=== PATIENT | female | born 1980 | race Caucasian/White ===

== ENCOUNTER 2023-11-22 08:35 | Emergency (ER) | payer OTHER, SELFPAY ==
--- NOTE | 2023-11-22 09:08 | ED.URI ---
HPI - URI/Sore Throat General Chief Complaint: Upper Respiratory Infection Stated Complaint: cough,fever Time Seen by Provider: 11/22/23 09:10 Source: patient Mode of arrival: ambulatory Limitations: no limitations History of Present Illness HPI Narrative: Chula is a 43-year-old female patient presenting to the clinic today with complaints of cough, body aches, chills, and fever times 2-3 days. She reports no chest pain, shortness of breath, sore throat, nausea, vomiting, or diarrhea. No known exposure to anyone with COVID, flu, or strep. MD elicited complaint: fever, sore throat and nasal congestion Related Data Home Medications Medication Instructions Recorded Confirmed atorvastatin 20 mg tablet mg 11/22/23 hydrocodone 5 mg-acetaminophen 325 tablet 11/22/23 mg tablet losartan 100 tablet 11/22/23 mg-hydrochlorothiazide 25 mg tablet metformin 500 mg tablet mg 11/22/23 naloxone 4 mg/actuation nasal spray intranasal 11/22/23 Allergies Allergy/AdvReac Type Severity Reaction Status Date / Time erythromycin base Allergy Unknown Verified 03/30/13 11:02 Review of Systems Review of Systems: Pertinent positives per HPI. Patient denies any fever, chills, rash, headache, visual changes, dizziness, cough, shortness of breath, chest pain, palpitations, nausea, vomiting, diarrhea, constipation, abdominal pain, or any urinary issues. [facility] Family History Family History Mother Hypertension Family history of malignant neoplasm of breast in first degree relative Father Family history of diabetes mellitus in first degree relative Social History Social History Smoking status: Never smoker Alcohol intake: never Comments At the time of my signature, I reviewed and agree with the nursing past medical, surgical, social, and family history. There is no relevant family history pertinent to the patient complaint. Exam Narrative: General: Well-developed, well nourished, in no apparent distress Head: Normocephalic, atraumatic Eyes: Pupils equally round and reactive to light bilaterally, EOM intact, sclera and conjunctive clear, no discharge, lids normal Ears: TMs intact and clear, ear canals clear, no drainage, grossly hearing normal. Nose: Nares patent, clear nasal discharge, no inflammation, no sinus tenderness. Mouth: Oral pharynx without lesions or masses, good dentition, MMM. Neck: Supple, trachea midline, no enlargement of anterior or posterior cervical nodes, no thyroid masses or goiter palpable. Cardio: Regular rate and rhythm, s1 and s2 normal, no murmur appreciated. Resp: Clear to auscultation bilaterally, no rhonchi, rales, wheezing or rubs Course Course Emergency Course: Portions of this record may have been created with voice recognition software. Level of Care: Express Care Visit Vital Signs Vital signs: Vital signs reviewed MDM - URI/Sore Throat MDM Narrative Medical decision making narrative: At the time of visit patient is resting comfortably on the exam table. Patient appears to be nontoxic. COVID and influenza testing was performed. COVID testing was negative. Influenza testing was positive for influenza A. Prescription for Tamiflu was sent to the pharmacy. Supportive measures were discussed with the patient and they voiced understanding discharge instructions and agrees to treatment plan. Return precautions reviewed Differential Diagnosis Differential diagnosis: Likely upper respiratory infection, otitis media, sinusitis, viral infection, bronchitis, influenza, pharyngitis and other (COVID) Discharge Plan Discharge Clinical Impression: Influenza A Patient Disposition: Home, Self-Care Condition: Stable Instructions: Antibiotic Form, Influenza (ED) Additional Instructions: COVID testing was negative in clinic today. Influenza testing was p
[2023-11-22 09:11] VITALS: BP 140/88; PULSE 99; RESP 18; TEMP 36.2; O2SAT 98
[2023-11-22 09:12] VITALS: BP 140/88; PULSE 99; RESP 18; TEMP 36.2; O2SAT 98
== END 2023-11-22 09:48 | disposition home or self-care (01) ==
PROVIDERS: Emergency Provider Nurse Practitioner Family
DX: J10.1 Influenza due to other identified influenza virus with other respiratory manifestations (principal); Z20.822 Contact with and (suspected) exposure to COVID-19; E78.00 Pure hypercholesterolemia, unspecified; I10 Essential (primary) hypertension; E11.9 Type 2 diabetes mellitus without complications
CPT/HCPCS: 87426; 87804; 99213; C9803; G0463

== ENCOUNTER 2024-03-04 16:00 | Emergency (ER) | payer OTHER, SELFPAY ==
[2024-03-04 16:15] VITALS: BP 114/58; PULSE 87; RESP 18; TEMP 36.4; O2SAT 99
[2024-03-04 16:18] VITALS: BP 114/58; PULSE 87; RESP 18; TEMP 36.4; O2SAT 99
--- NOTE | 2024-03-04 16:27 | ED.GENADULT ---
HPI - General Adult General Chief complaint: Dental/Oral Stated complaint: left jaw pain and swelling Source: patient, RN notes reviewed and old records reviewed Mode of arrival: ambulatory Limitations: no limitations History of Present Illness HPI narrative: 43-year-old female presents to [facility] with complaints of left jaw pain and swelling this started yesterday while eating lunch. Patient states lasted approximately 1 hour and then pain and swelling went away. Patient states headache in today after eating lunch. Patient denies dental pain, patient denies ear pain, patient denies injury. Related Data Home Medications Medication Instructions Recorded Confirmed atorvastatin 20 mg tablet mg 11/22/23 losartan 100 tablet 11/22/23 mg-hydrochlorothiazide 25 mg tablet metformin 500 mg tablet mg 11/22/23 Allergies Allergy/AdvReac Type Severity Reaction Status Date / Time erythromycin base Allergy Unknown Unknown Verified 03/04/24 16:16 Review of Systems Constitutional: Constitutional: Reports no additional constitutional complaints, Denies body ache(s), Denies chills, Denies fatigue, Denies fever(s) and Denies headache(s) Eyes: Eyes: Reports no additional eye complaints and Denies blurry vision ENT: Reports system reviewed and no additional complaints, except as documented, Denies vertigo, Denies dizziness, Denies ear discharge, Denies otalgia, Denies facial pain, Denies headache(s), Denies nasal congestion, Denies nasal discharge, Denies sinus pain, Denies sinus pressure and Denies sore throat Comments: Jaw pain and swelling Cardiovascular: Cardiovascular: Reports no additional cardiovascular complaints, Denies chest pain, Denies chest pain at rest, Denies rapid heart rate and Denies dyspnea Respiratory: Respiratory: Reports no additional respiratory complaints, Denies chest congestion, Denies cough, Denies pain on inspiration, Denies pain with cough and Denies dyspnea Gastrointestinal: Gastrointestinal: Denies abdominal pain, Denies diarrhea, Denies nausea and Denies vomiting Integumentary/Breasts: Skin/Breast: Denies rash Neurologic: Reports system reviewed and no additional complaints, except as documented, Denies vertigo, Denies dizziness and Denies headache(s) Endocrine: Endocrine: Denies fatigue [facility] Family History Family History Mother Hypertension Family history of malignant neoplasm of breast in first degree relative Father Family history of diabetes mellitus in first degree relative Social History Social History Smoking status: Never smoker Alcohol intake: never Comments At the time of my signature, I reviewed and agree with the nursing past medical, surgical, social, and family history. There is no relevant family history pertinent to the patient complaint. Exam Const: General: cooperative, healthy appearing, no acute distress and well nourished Nutritional Appearance: well nourished Orientation/consciousness: patient oriented x3 Limitations: no limitations HENMT: Head: normal to inspection and normocephalic Ears: external ears normal, TM's normal bilaterally, EAC's normal and mastoids normal Face/Nose/Sinus: Normal nasal mucous membranes and turbinates present, normal facial exam and sinuses nontender Face and sinus: normal facial exam, face symmetric, no abrasions, no crepitus and no maxillary instability Mouth: Yes Normal oral and palatal mucosa present, Yes tongue normal, Yes Normal salivary glands and ducts present, Yes oropharynx normal, Yes moist mucous membranes, Yes moist mucous membranes abnormal and Yes abnormal TMJ ( TMJ tenderness) Teeth and gingiva: dentition normal, gingiva normal, no caries, no dentures, not edentulous, normal gingiva and dentition not poor Throat: tonsils normal, uvula midline and no uvular edema Eyes: General: appearance nor
== END 2024-03-04 16:42 | disposition home or self-care (01) ==
PROVIDERS: Emergency Provider Registered Nurse
DX: M26.602 Left temporomandibular joint disorder, unspecified (principal)
CPT/HCPCS: 99213; G0463

== ENCOUNTER 2025-03-06 18:21 | Emergency (ER) | payer OTHER, SELFPAY ==
--- OUTSIDE RECORDS SUMMARY | 2025-03-06 18:25 | XMS_ITS | Clinical Summary ---
Author Organization [facility] Address [address] [place] [id number] Care Team Providers Care Stitcher Hand Name Role Phone Adelita Ely Primary Care Provider Allergies Active Allergy Reactions Criticality Noted Date Comments Erythromycin Rash Low 01/17/2016 Medications HYDROcodone-jaqueline taminophen (NORCO) 5-325 MG tabletIndicatio ns:Acute Pain < 7 Day Supply Take 1-2 tablets by mouth every 4 (four) hours as needed for Pain. Indications: Acute Pain < 7 Day Supply 30 tablet 10/03/2023 Active atorvastatin (LIPITOR) 20 MG tablet Take 1 tablet (20 mg total) by mouth nightly at bedtime. Active metFORMIN (GLUCOPHAGE) 500 MG tablet Take 2 tablets (1,000 mg total) by mouth 2 (two) times daily with meals. Active losartan-hydroC HLOROthiazide (HYZAAR) 100-25 MG tablet Take 1 tablet by mouth daily. Active multi vitamin/mineral s (THERA-M ENHANCED) tablet Take 1 tablet by mouth daily. Active probiotic (FLORAJEN3) Cap capsule Take 1 capsule by mouth daily with breakfast. Active polycarbophil (FIBER) 625 MG tablet Take 1 tablet (625 mg total) by mouth daily. Active Active Problems Problem Noted Date Diagnosed Date Closed right radial fracture 10/03/2023 Overview (10/03/2023): Added automatically from request for surgery [id number] Family History Medical History Relation Comments Diabetes Father Breast Cancer Mother age unknown Cancer Mother Diabetes Mother Heart Disease Mother Hypertension Mother Relation Status Comments Father Mother Social History Tobacco Use Types Packs/Day Years Used Date Smoking Tobacco: Never Smokeless Tobacco: Never Tobacco Cessation:Counseling Given: Not Answered Alcohol Use Standard Drinks/Week Comments Yes 0 (1 standard drink = 0.6 oz pur e alcohol) Socially Humiliation, Afraid, Rape, and Kick questionnair e Answer Date Recorded Within the last year, have y ou been afraid of your partner or ex-partner? No 10/03/2023 Within the last year, have y ou been humiliated or emotionally abused in other ways by your partner or ex-partner? No Within the last year, have y ou been kicked, hit, slapped, or otherwise physically hurt by your partner or ex-partner? No 10/03/2023 Within the last year, have y ou been raped or forced to have any kind of sexual activity by your partner or ex-partner? No 10/03/2023 Overall Financial Resource Strain (CARDIA) Answe r Date Recorded How hard is it for you to pa y for the very basics like food, housing, medical care, and heating? Not hard at all 10/03/2023 Hunger Vital Sign Answer Date Recorded Within the past 12 months, y ou worried that your food would run out before you got the money to buy more. Never true 10/03/20 23 Within the past 12 months, t he food you bought just didn't last and you didn't have money to get more. Never true 10/03/2023 PRAPARE - Transportation Answer Date Re corded In the past 12 months, has l ack of transportation kept you from medical appointments or from getting medications? No 01/2023 In the past 12 months, has l ack of transportation kept you from meetings, work, or from getting things needed for daily living? No 10/03/2023 Housing Stability Vital Sign Answer Damon e Recorded In the last 12 months, was t here a time when you were not able to pay the mortgage or rent on time? No 10/03/2023 In the last 12 months, how many places have you lived? 1 10/03/2023 In the last 12 months, was t here a time when you did not have a steady place to sleep or slept in a fci (including now)? No 10/03/2023 Comments No Sex and Gender Information Value Date Recorded Sex Assigned at Not on file Legal Sex Female 6:15 PM CDT Gender Identity Not on file Sexual Orientation Not on file Last Filed Vital Signs Vital Sign Reading Time Taken Comments Blood Pressure 145/84 10/04/2023 11:00 AM CDT Pulse 88 10/04/2023 11:00 AM CDT Temperature 37.1 C (98.7 F) 10/04/2023 11:00 AM CDT Respiratory Rate 18 10/04/2023 11:00 AM CDT Oxygen Saturation 95% 10/04/2023 11:00 AM CDT Inhaled Oxygen Concentration - - Weight 113.4 kg (250 lb) 10/03/2023 2:51 PM CDT Height 167.6 cm (5' 6 ) 10/03/2023 2:51 PM CDT Body Mass Index 40.35 10/03/2023 2:51 PM CDT Plan of Treatment Health Maintenance Due Date Last Done Comments Cervical Cancer Screening Pap Smear (Age 30 to 64) Every 3 Years 1978 Colorectal Cancer Screening Colonoscopy (10 Years) 1978 Annual Physical 1981 Hepatitis C 1996 Hepatitis B Vaccines (1 of 3 - 19+ 3-dose series) 1997 Cervical Cancer Screening Pap with HPV Testing (Age 30 to 64) Every 5 Years 2008 Cervical Cancer Screening with HPV 2008 COVID-19 Vaccine ( season) 2024 01/19/2021, 12/22/2020 DTaP, Tdap and Td Vaccines (2 - Td or Tdap) 11/10/2024 11/10/2014 Mammogram Screening 04/22/2026 04/22/2024, 03/05/2023, 02/25/2022, Additional history exists Meningococcal B Vaccine Aged Out No l onger eligible based on patient's age to complete this topic Meningococcal Vaccine Aged Out No angella sandeep eligible based on patient's age to complete this topic Pneumococcal Vaccine: Pediatrics (0 to 5 Years) and At-Risk Patients (6 to 64 Years) Aged Out No longer eligible based on patient's age to complete this topic RSV Immunizations Under 20 Months Aged Out No longer eligible based on patient's age to complete this topic Medical Devices Implanted Type Area Income Tax Administrator Device Identifier Shelf Expiration Date Model / Serial / Lot 5 Hole Narrow Plate Implanted:Qty: 1 on 10/03/2023 by Mario Cid DO at [facility] Right: Arm [employer] [id number] / / Non Locking Screw Implanted:Qty: 2 on 10/03/2023 by Mario Cid DO at [facility] Right: Arm [employer] [id number] / / Locking Screw Implanted:Qty: 1 on 10/03/2023 by Mario Cid DO at [facility] Right: Arm [employer] [id number] / / K Wire Implanted:Qty: 1 on 10/03/2023 by Mario Cid DO at [facility] Right: Arm [employer] [id number] / / Explanted Type Area Income Tax Administrator Device Identifier Shelf Expiration Date Model / Serial / Lot Locking Screw Explanted:Qty: 1 on 10/03/2023 by Mario Cid DO at [facility] Right: Arm [employer] [id number] / / Procedures Procedure Name Priority Date/Time Associated Diagnosis Comments MG SCREENING W AXEL JESUS DIGI Routine 04/22/2024 9:12 AM CDT Visit for screening mammogram from Last 3 Months or Most Recently Relevant to Health Maintenance Results * MG SCREENING W AXEL JESUS DIGI (04/22/2024 9:12 AM CDT) Anatomical Region Laterality Modality Breast Bilateral Mammography 04/22/2024 9:56 AM CDT Impressions 04/22/2024 9:56 AM CDT IMPRESSION: No suspicious change since the previous exams. Recommendation: 1: Routine Screening Bilateral in 1 Year Assessment: ACR BI-RADS 2 - BENIGN FINDING(S) Ordered By: ADELITA ELY Interpreted By: Rubens Cook MD, 04/22/2024 9:56 AM Narrative 04/22/2024 9:56 AM CDT Examination: Digital screening mammogram with CAD. Clinical history: Asymptomatic patient presents for routine screening. Comparison: 03/05/2023, 02/25/2022, 01/10/2021. Technique: Bilateral digital mammograms. The exam was interpreted with the use of a computer-aided detection (CAD) system. Additional 3-D tomosynthesis images were acquired. Tissue density: The breast tissue contains scattered fibroglandular densities. Findings: The breast tissue contains scattered fibroglandular densities. Benign-appearing calcification noted. No suspicious mass, microcalcification or area of architectural distortion can be identified. From a mammographic standpoint, routine followup in one year would seem adequate. Adelita KIM MAMMO Final R esult from Last 3 Months or Most Recently Relevant to Health [place] [address] [address] [facility] [employer] Member Subscriber Plan / Payer (Ef fective 2023-Present) Name:Eric Chual Audelia Relation to Subscriber:Self Name:Chula Reyes Payer ID:Not on file [facility] Type:Not on file Address: [address] [place] [address] [employer] [facility] Care Teams Stitcher Hand Relationship Specialty [place] [address] [place] [address] PCP - General PHYSICIAN CONTENT CHECKER 02/20/21
--- OUTSIDE RECORDS SUMMARY | 2025-03-06 18:25 | XMS_ITS | Clinical Summary ---
Author Organization [facility] [employer] Address [address] [place] [address] Care Team Providers Care Commercial Loan Processor Name Role Phone Adelita Fraga PA-C Primary Care Provider [phone] Source Comments [facility] Affiliates and Associated Physician Practices is amultiple site organization consisting of ambulatory clinics and hospital sitesin [place], [place], [place] and [place]. This disclosure is being madepursuant to the Care Everywhere program and may not contain all information available regarding this patient. Last updated 18.[facility] [employer] Allergies Active Allergy Reactions Criticality Noted Date Comments Erythromycin 01/17/2016 Medications * Be aware that medications may not be up to date on this document. Alwaysverify current medications with the patient. Medication Sig Dispensed Refills Start Date End Date Status Blood Glucose Monitoring Suppl (BLOOD GLUCOSE MONITOR SYSTEM) w/Device KITIndications:Graciela vated blood sugar Use 1 Each 3 times daily 1 Each 07/11/2021 Active Lancets (ONETOUCH DELICA PLUS 33G EXTRA FINE LANCET)Indications :New onset type 2 diabetes mellitus (HCC) USE 1 LANCET TO CHECK GLUCOSE THREE TIMES DAILY 100 Each 11 05/07/2023 Active OneTouch Verio test stripIndications:N ew onset type 2 diabetes mellitus (HCC) USE 1 STRIP TO CHECK GLUCOSE THREE TIMES DAILY 100 strip 11 05/07/2023 Active Semaglutide (2 MG/DOSE) 8 MG/3ML Subcutaneous Solution Pen-injector (Ozempic (2 MG/DOSE))Indicatio ns:Type 2 diabetes mellitus with hyperglycemia, without long-term current use of insulin (HCC) Inject 2 (two) mg subcutaneously every 7 days 3 mL 3 12/31/2024 Active losartan-hydroCHLO ROthiazide (Hyzaar) 100-25 MG tablet Take 1 (one) tablet by mouth once daily 90 tablet 1 12/31/2024 Active atorvastatin (Lipitor) 20 MG tablet Take 1 (one) tablet by mouth once daily 90 tablet 1 12/31/2024 Active Active Problems Problem Noted Date Diagnosed Date Hypertensive disorder 05/20/2024 Type 2 diabetes mellitus 05/20/2024 Family history of breast cancer in mother 2020 Encounters Date Type Department Care Team Description 01/06/[address] [phone] Adelita Fraga PA-C Med Question 12/31/2024 8:20 AM [employer] Office Visit [address] [phone] Adelita Fraga PA-C Type 2 diabetes mellitus with hyperglycemia, without long-term current use of insulin (Primary Dx); Essential hypertension; High triglycerides 12/31/2024 Travel 12/23/2024 Travel 12/23/[address] [phone] Adelita Fraga PA-C Refill Request 12/20/2024 Travel from Last 3 Months Immunizations Name Administration Dates Next Due INFLUENZA VACCINE, TRIV. (AF LURIA, FLUZONE TRIVALENT; 6MO+) (IIV3) 09/04/2021 Covid Moderna primary monovalent 12+ yr 0.5mL ,12/22/2020 INFLUENZA VACCINE 09/09/2020,08/29/2016 INFLUENZA VACCINE, QUADR. (A FLURIA, FLUZONE QUADRIVALENT; 6MO+) (IIV4) 09/03/2022 INFLUENZA VACCINE, QUADR. (F LUZONE; FLULAVAL; FLUARIX; AFLURIA QUADRIVALENT; 6MO+), 0.5 ML (IIV4) 10/10/2023 INFLUENZA VACCINE, TRIV. (FL UZONE; FLULAVAL; FLUARIX; AFLURIA TRIVALENT; 6MO+), 0.5 ML (IIV3) 09/13/2024 TDAP (7yrs+) 11/10/2014 Family History Medical History Relation Name Comments Diabetes Father Cancer - Breast Mother Diabetes Mother Heart Disease Mother Hypertension Mother Relation Name Status Comments Father Alive Mother Alive Social History Tobacco Use Types Packs/Day Years Used Date Smoking Tobacco: Never Smokeless Tobacco: Never Tobacco Cessation:Counseling Given: Not Answered Alcohol Use Standard Drinks/Week Comments Yes 0 (1 standard drink = 0.6 oz pur e alcohol) socially PHQ-2 Answer Date Recorded Patient Health Questionnaire-2 Score 0 12/31/2024 Sex and Gender Information Value Date Recorded Sex Assigned at Not on file Gender Identity Not on file Sexual Orientation Not on file Last Filed Vital Signs Vital Sign Reading Time Taken Comments Blood Pressure 122/80 12/31/2024 8:32 AM [employer] Pulse 88 12/31/2024 8:32 AM [employer] Temperature 36.2 C (97.1 F) 12/31/2024 8:32 AM [employer] Respiratory Rate 20 07/09/2019 10:53 AM CDT Oxygen Saturation 96% 12/31/2024 8:32 AM [employer] Inhaled Oxygen Concentration - - Weight 117.9 kg (260 lb) 12/31/2024 8:32 AM [employer] Height 167.6 cm (5' 6 ) 07/07/2024 2:23 PM CDT Body Mass Index 41.97 07/07/2024 2:23 PM CDT Plan of Treatment Upcoming Encounters Date Type Department Care Team (Late st Contact Info) Description 03/31/2025 3:30 PM CDT Office Visit [facility] [address] [phone] 06/30/2025 8:00 AM CDT Office Visit [facility] [address] [place] [phone] Adelita Fraga PA-C [facility] [place] [address] Health Maintenance Due Date Last Done Comments COLON MONITORING 1978 COLONOSCOPY - COLON CA SCREENING 1978 CT COLONOGRAPHY - COLON CA SCREENING 1978 FIT - COLON CA SCREENING 1978 FLEX SIG - COLON CA SCREENING 1978 HEPATITIS B VACCINE (1 of 3 - 19+ 3-dose series) 1997 PNEUMOCOCCAL VACCINE (1 of 2 - PCV) 1997 PAP SMEAR 11/27/2017 11/27/2014 DIABETES RETINOPATHY SCREENING 05/20/2024 COVID-19 VACCINE (3 - season) 2024 01/19/2021, 12/22/2020 DTAP/TDAP/TD VACCINES (2 - Td or Tdap) 11/10/2024 11/10/2014 DIABETES - URINE PROTEIN SCREENING 12/01/2024 09/13/2024 DIABETES-SERUM CREATININE 05/07/20252023, 10/03/2023, 10/03/2023, Additional history exists DIABETES-FOOT EXAM WITH MONOFILAMENT 05/20/2025 05/20/2024 DIABETES-HGB A1C 06/30/2025 12/31/2024, , 05/07/2024, Additional history exists MAMMOGRAM 04/22/2026 04/22/2024, 04/01, 04/22/2024, Additional history exists COLOGUARD (AGES 45-75) - COLON CA SCREENING 2027 2024, 2024 Colorectal Cancer Screening 2027 ZOSTER VACCINE (1 of 2) 2028 HEPATITIS C SCREENING 02/23/2029 Postpo lalit from 06/10/1996 (PCP Directed) HIV SCREENING 02/23/2029 Postponed from 1993 (PCP Directed) INFLUENZA VACCINE Completed 09/13/2024, , 10/06/2023, Additional history exists DEPRESSION SCREENING Completed 12/31/2024, 05/20/2024, 07/04/2023, Additional history exists HIB VACCINE Aged Out No longer eligi ble based on patient's age to complete this topic HPV VACCINE Aged Out No longer eligi ble based on patient's age to complete this topic MENINGOCOCCAL (Group B) VACCINE SHARED DECISION-MAKING Aged Out No longer eligible based on patient's age to complete this topic MENINGOCOCCAL GROUPS A/C/Y/W VACCINE Aged Out No longer eligible based on patient's age to complete this topic Procedures Procedure Name Priority Date/Time Associated Diagnosis Comments HEMOGLOBIN A1C - POINT OF CARE (AMB) [facility] Routine 12/31/2024 9:06 AM [employer] Type 2 diabetes mellitus with hyperglycemia, without long-term current use of insulin MICROALB/CREAT RATIO URINE RANDOM PANEL Routine 09/13/2024 9:38 AM CDT Type 2 diabetes mellitus with hyperglycemia, without long-term current use of insulin COLOGUARD TEST Routine 2024 9:15 AM CDT Colon cancer screening BASIC METABOLIC PANEL (CALCIUM TOTAL) Routine 05/07/2024 11:05 AM CDT Essential hypertension MAMMOGRAM 04/22/2024 from Last 3 Months or Most Recently Relevant to Health Maintenance Results * (ABNORMAL) HEMOGLOBIN A1C - POINT OF CARE (AMB) [facility] (12/31/2024 9:06 AM [employer]) Pathologist [facility] Hemoglobin A1c POCT 7.3 4.2 - 5.8 % [facility] QC Verified Yes Yes [facility] Blood BLOOD SPECIMEN / Unknown 12/31/2024 9:06 AM [employer] Adelita Fraga PA-C LAB - POINT OF CAR E ORDERABLES [facility] [address] [phone] * MICROALB/CREAT RATIO URINE RANDOM PANEL (09/13/2024 9:38 AM CDT) Creatinine Urine 202.2 mg/dL 09/13/20 4:59 PM CDT [facility] Microalbumin Urine 5.2 mg/dL 09/13/2024 4:59 PM CDT [facility] Microalbumin/Crea tinine Ratio 25 Normal: <30 mg/g, Microalbum inuria: 30-299 mg/g, Macroalbum inuria: >=300 mg/g mg/g 09/13/2024 4:59 PM CDT [facility] Urine URINE SPECIMEN OBTAINED BY CLEAN CATCH PROCEDURE / Unknown Collection / Unknown 09/13/2024 9:38 AM CDT 09/13/2024 9:38 AM CDT Adelita Fraga PA-C LAB - URINE CHEMIS TRY ORDERABLES [facility] [address] * [id number] COLOGUARD TEST *Associate with Z12.11 OR Z12.12 Dx Codes* (2024 9:15 AM CDT) Cologuard Negative Negative [facility] Comment: NEGATIVE TEST RESULT. A negative Cologuard result indicates a low likelihood that a colorectal cancer (CRC) or advanced adenoma (adenomatous polyps with more advanced pre-malignant features) is present. The chance that a person with a negative Cologuard test has a colorectal cancer is less than 1 in 1500 (negative predictive value >99.9%) or has an advanced adenoma is less than 5.3% (negative predictive value 94.7%). These data are based on a prospective cross-sectional study of 10,000 individuals at average risk for colorectal cancer who were screened with both Cologuard and colonoscopy. (Adriel Wynn al, N Engl J Med 2014;370(14):7014-4696) The normal value (reference range) for this assay is negative. COLOGUARD RE-SCREENING RECOMMENDATION: Periodic colorectal cancer screening is an important part of preventive healthcare for asymptomatic individuals at average risk for colorectal cancer. Following a negative Cologuard result, the [place] Cancer Society and U.S. Multi-Society Task Force screening guidelines recommend a Cologuard re-screening interval of 3 years. References: [place] Cancer Society Guideline for Colorectal Cancer Screening: https://www.cancer.org/cancer/qwmjs-nglncu-ceteyz/iefdkdljl-gsdbmzict-wdlkvqa/ acs-recommendations.html.; Aroldo DK, Maria Isabel CR, Teetee SandraK, Colorectal Cancer Screening: Recommendations for Physicians and Patients from the U.S. Multi-Society Task Force on Colorectal Cancer Screening , Am J Gastroenterology 2017; 112:9573-3058. TEST DESCRIPTION: Composite algorithmic analysis of stool DNA-biomarkers with hemoglobin immunoassay. Quantitative values of individual biomarkers are not reportable and are not associated with individual biomarker result reference ranges. Cologuard is intended for colorectal cancer screening of adults of either sex, 45 years or older, who are at average-risk for colorectal cancer (CRC). Cologuard has been approved for use by the U.S. FDA. The performance of Cologuard was established in a cross sectional study of average-risk adults aged 50-84. Cologuard performance in patients ages 45 to 49 years was estimated by sub-group analysis of near-age groups. Colonoscopies performed for a positive result may find as the most clinically significant lesion: colorectal cancer [4.0%', advanced adenoma (including sessile serrated polyps greater than or equal to 1cm diameter) [20%' or non- advanced adenoma [31%'; or no colorectal neoplasia [45%'. These estimates are derived from a prospective cross-sectional screening study of 10,000 individuals at average risk for colorectal cancer who were screened with both Cologuard and colonoscopy. (Adriel Wynn al, N Engl J Med 2014;370(14):9407-7666.) Cologuard may produce a false negative or false positive result (no colorectal cancer or precancerous polyp present at colonoscopy follow up). A negative Cologuard test result does not guarantee the absence of CRC or advanced adenoma (pre-cancer). The current Cologuard screening interval is every 3 years. ([place] Cancer Society and U.S. Multi-Society Task Force). Cologuard performance data in a 10,000 patient pivotal study using colonoscopy as the reference method can be accessed at the following location: www.AxisRooms.XtremIO/results. Additional description of the Cologuard test process, warnings and precautions can be found at www.Allozynerd.XtremIO. Stool STOOL SPECIMEN / Unknown 2024 9:15 AM CDT 06/17/2024 10:15 AM CDT Adelita Fraga PA-C LAB - CHEMISTRY OR DERABLES [facility] [address] [place] [address] [facility] [address] [id number] * (ABNORMAL) BASIC METABOLIC PANEL (CALCIUM TOTAL) (05/07/2024 11:05 AM CDT) Pathologist [facility] Glucose 205(H) 65 - 100 mg/dL 05/07/2024 12:03 PM CDT [facility] ([facility]) BUN 14 7 - 17 mg/dL 05/07/2024 12:03 PM T [facility] ([facility]) Creatinine 0.50 0.50 - 1.04 mg/dL 05/07/2024 12:03 PM T [facility] ([facility]) eGFR 133 >=60 ml/min/1.7 3*2 05/07/2024 12:03 PM [facility] ([facility]) Comment: Chronic kidney disease is defined as either the presence of kidney disease or a GFR of less than 60 ml/min/1.732 for 3 or more months and can be diagnosed without knowledge of its cause (NKF). Reference range in ml/min/1.732 For healthy adults > 60 Chronic Kidney Disease 15-60. GFR is not recommended for patients greater than 70 years. Reference ranges not available for patients under 18 yrs. Test will not be performed. BUN/Creatinine Ratio 30.0(H) 6.0 - 26.0 05/07/2024 12:03 PM T [facility] ([facility]) Sodium 139 137 - 145 mmol/L 05/07/2024 12:03 PM [facility] ([facility]) Potassium 4.1 3.6 - 5.0 mmol/L 05/07/2024 12:03 PM T [facility] ([facility]) Chloride 107 98 - 107 mmol/L 05/07/2024 12:03 PM T [facility] ([facility]) Carbon Dioxide 22 21 - 31 mmol/L 05/07/2024 12:03 PM CDT [facility] ([facility]) Calcium 9.5 8.4 - 10.7 mg/dL 05/07/2024 12:03 PM CDT [facility] ([facility]) Blood BLOOD SPECIMEN / Unknown Lab Venipuncture / Unknown 05/07/2024 11:05 AM CDT 05/07/2024 11:05 AM CDT Adelita Fraga PA-C LAB - CHEMISTRY OR DERABLES [facility] ([facility] [address] [place] [address] * MAMMOGRAM (04/22/2024) Anatomical Region Laterality Modality Other 04/22/2024 Narrative 04/22/2024 Ordered by an unspecified provider. Scanned Document SCANNING ONLY from Last 3 Months or Most Recently Relevant to Health Maintenance Care Teams Commercial Loan Processor Relationship Specialty Start Date End Date Adelita Fraga PA-C [address] [place] [address] PCP - General Physician Cardiac Sonographer 02/28/16
--- OUTSIDE RECORDS SUMMARY | 2025-03-06 18:25 | XMS_ITS | Data Portability ---
Author Organization [facility] Address [address] [place] [address] Assessment No assessment recorded. Plan of Treatment Reminders Order Date Submit Date Provider Last Modified By Organization Details Last Modified Time Details Appointments None record ed. Lab None record ed. Referral None record ed. Procedures None record ed. Surgeries None record ed. Imaging None record ed. Medication Orders None record ed. Patient TargetsNo targets recorded. Patient Instructions Encounter Date Encounter Id Patient Instructions Last Modified By Organization Details Last Modified Time 10/27/2023 [id number] I discussed with Chula that she seems to be doing well today following her surgery. I told her that I want her to continue going to therapy as well as working on range of motion exercises at home. She should continue wearing her splint to provide stability and support to her wrist. She needs to limit weightbearing on this arm. She already has an appointment scheduled to follow-up with me in [place] on November 14, 2023 and we will get x-rays on that day. I told her that the numbness and tingling that she is experiencing could have been caused by the pin that she had in her wrist or it could be due to the swelling from the trauma and the surgery. I did tell her that sometimes after a fracture of the distal radius people will end up with carpal tunnel syndrome, but I want to see how she does now that we got the pin out and she can move her wrist more freely. I told her to contact our office with any questions or concerns. She voiced understanding and agreed with this plan of care. Patient was seen by Nickie Marcos NP, and the diagnoses, problems, and treatment plan for the patient has been reviewed and approved by me, Dr. Mario Cid. [email or web address] Not available 10/27/2023 16:27:09 Hospital Discharge Instructions Patient Instructions None recorded. Patient Goals None recorded. Results Created Date Observation Date Name Description Value Unit Range Abnormal Flag Note LastModifiedBy Organization Detail LastModifiedTime 10/27/20 23 XR Radiu s and Ulna Views EXAM DESCRI PTION: XR RT FOREAR M REASON FOR STUDY: Closed fx of right radius .Durat ion: 023Pre vious Surger y: ORIF 023 TECHNI QUE: Fronta l and latera l radiog raphic view(s ) of the right forear m . COMPAR MOHAN: None availa ble. FINDIN GS: There is a plate and screw assemb ly transf ixing the radial shaft fractu re and there is a single radiop aque wire projec ting over the distal radius and ulna. Subtle irregu larity in the distal ulna. Please correl ate with previo us imagin g studie s. IMPRES DIPTI: Postop erativ e change s as above. Previo us imagin g studie s are not availa ble for compar mohan. An addend um can be made once priors are provid ed. AP: APD: 2022 7:17 AMT: 2022 7:17 AMRepo rt ID: [id number] 1Readi ng Locati on: CRPACS [id number] rpRaven Tavarez ation Date: 2022 07:17 Not Available [facility] (Imaging) [address] , [place], [address], Not Available Result Notes None recorded. Problems Name Problem SNOMED Code Status Onset Date Resolution Date Notes Provider Name and Address Organization Details Recorded Time Type 2 diabetes mellitus 18886663 Active Sinai Brian RN [address] [place], [address], [facility] 3 14:46:40 Hypertensiv e disorder 73256882 Active Sinai Brian RN [address] [place], [address], [facility] 3 14:46:49 Closed fracture of distal end of right radius [id number] 9105 Active 2022 NICKIE MARCOS NP [address] [place], [address], [facility] 16:23:40 Problem Notes None recorded. Procedures Surgical History Date Name Laterality Status Provider Name and Address Organization Details Recorded Time 10/03/20 open reduction with internal fixation completed Sinai Brian RN [address] [place], [address], [facility] 10/27/2023 14:47:52 cholecystectomy completed Sinai Brian RN [address] [place], [address], [facility] 10/27/2023 14:48:11 Imaging Results Imaging Date Name Status LastModified by Organiz ation Details LastModified Time 10/27/2023 XR Radius and Ulna Views active Not Available [facility] (Imaging) [address] [place], [address], Not Available Procedure Notes None recorded. Medical Equipment None Reported. Allergies Allergen ID Allergen Name Allergen Category Reaction Reaction Severity Criticality Documentation Date Start Date Code Code System Note Provider Name and Address Organization Details Recorded Time 00629 erythromy brandan medicatio n rash Not available Not available 10/27/2023 4053 RxNorm Sinai Brian RN [address] [place], [address], [facility] 14:45:14 Medications Name Sig Start Date Stop Date Status Note LastModified by Organization Details LastModified Time metformin 500 mg tablet Take 2 tablets twice a day by oral route. active Not Available Not Available No t Available atorvastatin 20 mg tablet Take 1 tablet every day by oral route. active Not Available Not Available No t Available hydrocodone 5 mg-acetaminoph en 325 mg tablet Take 1 tablet every 4 hours by oral route as needed. active Not Available Not Available No t Available losartan 100 mg-hydrochloro thiazide 25 mg tablet Take 1 tablet every day by oral route. active Not Available Not Available No t Available Vitals Date Recorded Oxygen saturation Oxygen saturation in Arterial blood by Pulse oximetry Heart rate Body temperature Body height Respiratory rate Pain severity - 0-10 verbal numeric rating [Score] - Reported Body mass index (BMI) Body weight Systolic blood pressure Diastolic blood pressure Provider Name and Address Organization Details Last Updated DateTime 3 98 % 98 % 97 /min 98.4 [degF] 167.64 cm 18 /min 4 41.6 kg/m2 421154 g 130 mm[Hg] 88 mm[Hg] Sinai Brian RN [address] [place], [address], [facility] 14:44:26 Social History Question Answer Notes LastModified by Organizat ion Details LastModified Time Tobacco Smoking Status Never Smoker Sinai Brian RN [address] [place], [address], [facility] 10/27/2023 14:47:18 What Is Your Level Of Alcohol Consumption? Occasional [email or web address] Information not available 10/27/2023 What Is Your Level Of Caffeine Consumption? Occasional [email or web address] Information not available 10/27/2023 What Is Your Code Status? 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 10/27/2023 [email or web address] Information not available 10/27/2023 Do You Use Any Illicit Or Recreational Drugs? No [email or web address] Information not available 10/27/2023 Do You Or Have You Ever Used Any Other Forms Of Tobacco Or Nicotine? No [email or web address] Information not available 10/27/2023 Sex: Unknown Functional Status None recorded. Mental Status None recorded. Family History Nothing Reported. Medical History Condition Response Coronary Artery Disease N Other N Gout N Atrial Fibrillation N Blood Diseases N Hyperthyroidism N Emphysema N Head Trauma/Injury N Hernia N Hypothyroidism N Lung Disease N Depression N COPD N Developmental or Behavioral Disorders N Defects or Inherited Disease N Pacemaker N Difficulty Swallowing N Gastrointestinal Disease N Deep Vein Thrombosis N Anxiety Disorder N Muscle, Joint, or Bone Problems Y Autoimmune disease N Pylonephritis N Family history of skin cancer N Difficulty seeing N Arthritis N Serious Illness or Injuries N Polyps N Blood Clot N Acid Reflux (GERD) N Cancer N medical appliances N Stroke N Neck Injury N Leg or Foot Ulcers N Diabetes: Last eye exam? 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 Ear or Hearing Problems N history of skin cancer N Hospitalizations N Thyroid Problems N GI Problems N Carpel Tunnel N ADD/ADHD N Anemia N Constipation N Heart Attack ([place]) N Mental Illness N Diabetes Y Bleeding Disorder N Seizures/Epilepsy N Tuberculosis N Myocardial Infarction N Congestive Heart Failure (CHF) N Hyperlipidemia N Diverticulitis N Abuse/Domestic Violence N Asthma N Atrial Flutter N Peripheral Vascular Disease N Bipolar Disorder N Autism N Warfarin Management N Hepatitis N Neuropathy N Heart Disease N Pulmonary Embolism N Hypertension Y Osteoporosis N Gynecological HistoryNo gynecological history recorded. Obstetrics History GPAL:G 0 P 0 0 0 0 Immunizations Vaccine Type Date Status Note Provider Nam e and Address Organization Details Recorded Time influenza, unspecified formulation 10/06/2023 completed Sinai Brian, RN [address] [place], [address], [facility] 10/27/2023 14:46:26 Past Encounters Encounter ID Performer Location Encounter Start Date Encounter Closed Date Diagnosis/Indication Diagnosis SNOMED-CT Code Diagnosis ICD10 Code Diagnosis Note [id number] [facility] ardio Test [address] [place] [address] 10/27/2023 14:16:00 10/28/2023 00:59:00 Health Concerns Section Related Observation LastModified by Organization Detai ls LastModified Time None Recorded Concern Status LastModified by Organization Details LastModified Time None Recorded Advance Directives Directive None Recorded Payers Encounter Date Sequence Insurance Name Policy Number Policy Santiago Covered Member ID Santiago Member ID Guarantor Name 10/27/2023 [employer] Unknown Chula Reyes Notes Date Note Type Note Provider Name and Address Organization Details Recorded Time 10/27/2023 text/html Wrist/HandReport e d bypatient.Hand Dominance:right Location:right Quality:aching Severity:mild Timing:acute Context:fall Alleviating Factors:rest; limited weight bearing; PT/OT; previous surgery; splint Associated Symptoms:numbness ;tingling Previous Surgery:surgical procedure: (ORIF distal radius shaft); date: (10/03/2023) Prior Imaging:x ray Chula is seen in clinic today for follow-up of a right distal radius shaft ORIF on 10/03/2023 in [place]. She is here today to have the pin removed from her wrist for a DRUJ injury. She presents wearing her custom splint and states that she has been wearing this as instructed. She has been going to physical therapy 1 time a week to work on range of motion exercises. She does complain of some numbness and tingling in her first, second and third fingers which she states is new since the surgery on her wrist. She has mild pain today that she rates a 4/10. She has no other complaints today. NICKIE MARCOS NP [address] [place], [address], [facility] 10/27/2023 16:27:30 OBGyn Episode No OBEpisode recorded.
--- OUTSIDE RECORDS SUMMARY | 2025-03-06 18:25 | XMS_ITS | Data Portability ---
Author Organization [place] [facility] , Main Office- [place] Address [address] [place] [address] Care Team Providers Care Paid Internship Name Role Phone LEONARDOKEN PAULINO [employer] Assessment No assessment recorded. Plan of Treatment Reminders Order Date Submit Date Provider Last Modified By Organization Details Last Modified Time Details Appointments None recorded. Lab None recorded. Referral occupation al therapist referral - add strengthen ing to current regimen please 2022 023 [facility], [address] [place], [address], 3 11:46:00 occupation al therapist referral - custom volar splint for distal radius shaft fx 2022 023 [facility], [address], [place], [address], 3 08:47:51 Procedures None recorded. Surgeries None recorded. Imaging None recorded. Medication Orders None recorded. Patient TargetsNo targets recorded. Patient Instructions Encounter Date Encounter Id Patient Instructions Last Modified By Organization Details Last Modified Time 10/17/2023 [id number] I discussed with Chula that she seems to be doing well for being 2 weeks out from her surgery. We went over incision care today including not to soak the incision in a hot tub, bathtub, swimming pool, or body of water for at least 2 more weeks. I also do not want her putting any lotions, creams, ointments, or oils on her incision for at least 2 more weeks. I did tell her that if the area around the pin gets any drainage, she can clean it and put some triple antibiotic ointment on that spot. She was supposed to receive a custom splint a few days after her surgery but she has not yet done this. We tried to arrange for her to get this today, but she is not able to do this until Friday. Because of that I am going to give her a removable Velcro splint today that she can wear until she is able to get her custom splint on Friday. I am going to give her a note to return to work on Friday after she is fitted for her splint. I did tell her that she must wear the splint at all times and she also is to be nonweightbearing with the splint on until she returns in 4 weeks. She is going to follow-up with me the Friday after Thanksgiving in [place] so that I can pull the pin from her wrist. I also want to see her back in a month with another set of x-rays. I told her that if she has any pain she can take the pain medication she was prescribed or OTC pain medication and use ice and elevation as well. She was instructed to contact us with any questions or concerns. She voiced understanding and agreed with this plan of care. Patient was seen by Nickie Marcos NP, and the diagnoses, problems and treatment plan for the patient has been reviewed and approved by , Dr. Mario Cid. Not available 10/17/2023 18:23:27 11/14/2023 [id number] I discussed with Chula that she seems to be doing well for being 6 weeks out from her surgery. At this point she can discontinue the use of her splint. She can start using her arm more letting pain be her guide, and I told her that as she does this she may experience some discomfort and mild swelling. If this occurs she can use ice and elevation. I am going to add some strengthening to her therapy orders as well. I told her that once we are out of the 90-day global period after her surgery, we can address the carpal tunnel symptoms it sounds like she is experiencing. She was instructed to contact our office with any questions or concerns. She voiced understanding and agreed with this plan of care. Patient was seen by Nickie Marcos NP, and the diagnoses, problems and treatment plan for the patient has been reviewed and approved by me, Dr. Mario Cid. Not available 11/14/2023 11:52:03 12/26/2023 [id number] I discussed with Chula that she seems to be doing well from a surgical standpoint. However, she is now experiencing some carpal tunnel symptoms. She said that prior to her fracture and surgery she did not have any of these problems. I want to get an EMG to confirm this diagnosis. Once we have the results of the EMG we will follow up with her to go over those and come up with a treatment plan moving forward. She was instructed to contact us with any questions or concerns. She voiced understanding and agreed with this plan of care. Patient was seen by Nickie Marcos NP, and the diagnoses, problems and treatment plan for the patient has been reviewed and approved by me, Dr. Mario Cid. Not available 12/27/2023 18:26:40 02/06/2024 [id number] I did review her nerve conduction studies today with her which shows severe carpal tunnel syndrome of the right median nerve. We did discuss options of treatment in great detail today and after discussing the patient with Dr. Cid and discussing the surgery with Chula we are going to proceed with surgical intervention. She needs to discuss timing with her job and will call the office when she is ready to schedule. Once she picks a date we will proceed with right carpal tunnel decompression. We we will see her back at the time of surgery. She understands and agrees with her treatment plan. If she has any questions or concerns she knows she can call the office at any time. Surgery Counseling We discussed various methods of treatment for this diagnosis, including both non-surgical and surgical treatment options. The procedure was discussed in detail, including rationale for proceeding with the procedure, specifics of the technical aspects of the procedure, and the expected postoperative course including the possible need for activity modification, therapy, and duration of expected recovery. Risks to surgery include: pain, numbing, scar, infection, loss of motion, nerve or vascular injury, stiffness, blood loss, reoccurrence, re-operation, non-union or mal-union, fracture, dislocation, unequal leg lengths, allergic reaction to medicine, heart attack, stroke or . Risks of allograft and blood transfusions include; infection, allergic reaction, disease transmission including hepatits or AIDS virus. Complications, including blood loss and potential need for transfusion, nerve injury, infection, success rates (expected outcomes) of the procedure, and risk of from anesthesia were discussed. {{Patient parent Lis a#}} fully understands that there are no guarantees with surgical intervention. The {{patient* parent}} voiced understanding of the procedure and risks, and the decision for surgery was made today. Patient was seen by Inez Collins PA-C, the diagnosis, problems and treatment plan was reviewed and approved by mtDr. Cid. [email or web address] Not available 02/08/2024 13:51:51 Reason for Referral Occupational Therapist Refer ral for Closed fracture of shaft of radius custom volar splint for distal radius shaft fx Referring Physician: Mario Cid, Orthopedic Surgery, Encounter Date: 10/17/2023 Occupational Therapist Refer ral for Closed fracture of shaft of radius add strengthening to current regimen please Referring Physician: Mario Cid, Orthopedic Surgery, Encounter Date: 11/14/2023 Results Created Date Observation Date Name Description Value Unit Range Abnormal Flag Note LastModifiedBy Organization Detail LastModifiedTime 10/19/20 23 10/17/2023 XR, wrist No observ ation record ed. [facility] [id number] [place], [address], 10/19/2023 11:09:36 11/14/20 23 11/14/2023 XR, wrist No observ ation record ed. [facility] [address] [place], [address], 11/14/2023 16:13:22 01/12/20 24 01/12/2024 nerve condu ction study /EMG, upper extre mity (PROC ) No observ ation record ed. [email or web address] Not Available 2023 08:54:18 01/14/20 24 01/12/2024 nerve condu ction study /EMG, upper extre mity (PROC ) No observ ation record ed. [email or web address] Not Available 2023 09:54:21 Result Notes None recorded. Problems Name Problem SNOMED Code Status Onset Date Resolution Date Notes Provider Name and Address Organization Details Recorded Time Closed fracture of right radius 7528896509789 9100 Active 2022 Lorna crisostomo, [place] - [facility] 3 09:24:58 Closed fracture of shaft of radius 7957663 Active 2022 NICKIE MARCOS, CARD GRINDER [address], [place], [address], [place] - [facility] 3 09:44:53 Postoperati ve visit 037462249 Active 2022 NICKIE MARCOS, CARD GRINDER [address], [place], [address], [place] [facility] 3 11:35:28 Paresthesia of hand 911335034 Active 2023 NICKIE MARCOS, CARD GRINDER [address], [place], [address], [place] [facility] 4 18:04:24 Carpal tunnel syndrome 13824162 Active 2023 Mario Cid, [address], [place], [address], [place] [facility] 4 15:20:27 Problem Notes None recorded. Procedures Surgical History Date Name Laterality Status Provider Name and Address Organization Details Recorded Time cholecystostomy completed bhavya felix [place] [facility] 10/14/2023 14:14:05 Imaging Results Imaging Date Name Status LastModified by Organiz [facility] Details LastModified Time 10/17/2023 XR, wrist completed [facility] [address], [place], [address], 10/19/2023 11:09:36 11/14/2023 XR, wrist completed [facility] [address], [place], [address], 11/14/2023 16:13:22 01/12/2024 nerve conduction study/EMG, upper extremity (PROC) completed Information not available 01/13/2024 08:54:18 01/12/2024 nerve conduction study/EMG, upper extremity (PROC) completed Information not available 01/15/2024 09:54:21 Procedure Notes None recorded. Medical Equipment None Reported. Allergies Allergen ID Allergen Name Allergen Category Reaction Reaction Severity Criticality Documentation Date Start Date Code Code System Note Provider Name and Address Organization Details Recorded Time 232 erythromy brandan medicatio n rash mild Not available 10/17/20232015 4053 RxNorm Lorna crisostomo, [place] - [facility] 3 09:24:45 Medications Name Sig Start Date Stop Date Status Note LastModified by Organization Details LastModified Time metformin 500 mg tablet TAKE 2 TABLETS BY MOUTH TWICE DAILY WITH MORNING MEAL AND WITH EVENING MEAL active Not Available Not Available No t Available atorvastatin 20 mg tablet TAKE 1 TABLET BY MOUTH ONCE DAILY active Not Available Not Available No t Available hydrocodone 5 mg-acetamino phen 325 mg tablet TAKE 1 TO 2 TABLETS BY MOUTH EVERY 4 HOURS NEEDED FOR PAIN active Not Available Not Available No t Available losartan 100 mg-hydrochlo rothiazide 25 mg tablet TAKE 1 TABLET BY MOUTH ONCE DAILY active Not Available Not Available No t Available oseltamivir 75 mg capsule TAKE 1 CAPSULE BY MOUTH EVERY 12 HOURS FOR 5 DAYS active Not Available Not Available No t Available calcium polycarbophi l 625 mg tablet 625 mg by oral route. active Not Available Not Available No t Available losartan 100 mg-hydrochlo rothiazide 12.5 mg tablet 1 {tbl} by oral route. 10/03 completed Not Available Not Available Not Available OneTouch Verio test strips USE 1 STRIP TO CHECK GLUCOSE THREE TIMES DAILY active Not Available Not Available No t Available naloxone 4 mg/actuation nasal spray 1 {spray} every 24 hours by nasal route. 10/03 completed Not Available Not Available Not Available OneTouch Delica Plus Lancet 33 gauge USE 1 TO CHECK GLUCOSE THREE TIMES DAILY active Not Available Not Available No t Available Lactobacillu s acidophilus- Bifidobac.an imalis 32 billion cell capsule 1 {capsule } by oral route. active Not Available Not Available No t Available Vitals Date Recorded Body height Body mass index (BMI) Body weight Heart rate Systolic blood pressure Diastolic blood pressure Provider Name and Address Organization Details Last Updated DateTime 3 167.64 cm 40.4 kg/m2 745700. 09 g 98 /min 132 mm[Hg] 91 mm[Hg] Lorna Cruz [place] - [facility] 3 09:24:22 Date Recorded Body height Body mass index (BMI) Body weight Heart rate Systolic blood pressure Diastolic blood pressure Provider Name and Address Organization Details Last Updated DateTime 3 167.64 cm 40.4 kg/m2 851925. 09 g 83 /min 133 mm[Hg] 87 mm[Hg] Lorna Cruz [place] [facility] 3 10:46:21 Date Recorded Body height Body mass index (BMI) Body weight Body temperature Heart rate Systolic blood pressure Diastolic blood pressure Provider Name and Address Organization Details Last Updated DateTime 4 167.64 cm 41.5 kg/m2 534773. 24 g 97.3 [degF] 86 /min 106 mm[Hg] 67 mm[Hg] Sheila Alfonso [place] - [facility] 4 10:13:14 Date Recorded Body height Body mass index (BMI) Body weight Body temperature Heart rate Systolic blood pressure Diastolic blood pressure Provider Name and Address Organization Details Last Updated DateTime 4 167.64 cm 42.8 kg/m2 759250. 98 g 97.3 [degF] 91 /min 107 mm[Hg] 97 mm[Hg] Sheila Alfonso [place] [facility] 4 14:53:16 Social History Question Answer Notes LastModified by Organizat ion Details LastModified Time Tobacco Smoking Status Never Smoker bhavya crisostomo [place] [facility] 10/14/2023 14:13:30 What Is Your Level Of Alcohol Consumption? Occasional [email or web address] Information not available 10/14/2023 Are You Blind Or Do You Have Difficulty Seeing? No [email or web address] Information n ot available 10/14/2023 In The 14 Days Before Symptom Onset, Have You Had Close Contact With A Laboratory-confirm ed COVID-19 While That Case Was Ill? No [email or web address] Information n ot available 10/14/2023 In The 14 Days Before Symptom Onset, Have You Had Close Contact With A Person Who Is Under Investigation For COVID-19 While That Person Was Ill? No [email or web address] Information not available 10/14/2023 Have You Been To An Area Known To Be High Risk For COVID-19? No [email or web address] Information not available 10/14/2023 Are You Deaf Or Do You Have Serious Difficulty Hearing? No [email or web address] Information not available 10/14/2023 What Type Of Diet Are You Following? REGULAR Information n ot available 10/14/2023 Have You Processed Blood Or Body Fluids From An Ebola Virus Disease Patient Without Appropriate PPE? No [email or web address] Information not available 10/14/2023 Do You Reside In Or Have You Traveled To An Area Where Ebola Virus Transmission Is Active? No Information not available 10/14/2023 Are There Any Guns Present In Your Home? No Information not available 10/14/2023 What Is Your Relationship Status? Information not available 10/14/2023 Do You Use Your Seat Belt Or Car Seat Routinely? Yes [email or web address] Information not available 10/14/2023 Are You Sexually Active? No [email or web address] Information not available 10/14/2023 Do You Have Smoke And Carbon Monoxide Detectors In Your Home? Yes [email or web address] Information not available 10/14/2023 Do You Feel Stressed (tense, Restless, Nervous, Or Anxious, Or Unable To Sleep At Night)? CK0326-4 [email or web address] Information not available 10/14/2023 Do You Use Any Illicit Or Recreational Drugs? No Information not available 10/14/2023 Do You Use Sunscreen Routinely? Yes [email or web address] Information not available 10/14/2023 Do You Or Have You Ever Used Any Other Forms Of Tobacco Or Nicotine? No [email or web address] Information not available 10/14/2023 Sex: Female Functional Status Question Answer Note LastModified by Organizat ion Details LastModified Time Do you have difficulty walking or climbing stairs? No [email or web address] Information not available 10/14/2023 Are you able to walk? [email or web address] Information not available 10/14/2023 Do you have difficulty doing errands alone? No [email or web address] Information not available 10/14/2023 Are you able to care for yourself? Yes [email or web address] Information not available 10/14/2023 Do you have difficulty dressing or bathing? No [email or web address] Information not available 10/14/2023 What is your exercise level? Occasional Information not available 10/14/2023 Mental Status Question Answer Note LastModified by Organization D etails LastModified Time Do you have difficulty concentrating, remembering or making decisions? No [email or web address] Information no t available 10/14/2023 Family History Relationship Description Onset Age of this Age Resolved Age Notes LastModified by Organization Details LastModified Time Mother Malignant tumor of breast [email or web address] Not available 2022 14:13:03 Medical History Condition Response Coronary Artery Disease N Heart Problems N Anxiety/Depression N Gout N Blood Transfusion N Hernia N Migraines N Thyroid Problems N COPD N Pacemaker N Anemia N Heart Attack (SD) N Ulcers N Diabetes N Bleeding Disorder N Orthotics N Seizures/Epilepsy N Arthritis N Blood Clot N Tuberculosis N AIDS/HIV N Cancer N Stroke N Asthma N Peripheral Vascular Disease N High Cholesterol N Hepatitis N Liver Disease N Rheumatoid Arthritis N Pulmonary Embolism N Hypertension N Osteoporosis N Kidney Disease N Gynecological HistoryNo gynecological history recorded. Obstetrics History GPAL:G 0 P 0 0 0 0 Past Encounters Encounter ID Performer Location Encounter Start Date Encounter Closed Date Diagnosis/Indication Diagnosis SNOMED-CT Code Diagnosis ICD10 Code Diagnosis Note [id number] [address] 10/17/2023 09:09:22 10/17/2023 10:17:43 Closed fracture of shaft of radius 0848357 S52.321A Postoperative visit 1836 82247 Z09 [id number] [address] 11/14/2023 10:37:45 11/14/2023 11:13:57 Closed fracture of shaft of radius 5107005 S52.321D Postoperative visit 1836 24978 Z09 [id number] [address] 12/26/2023 09:46:04 12/26/2023 10:28:59 Closed fracture of shaft of radius 1722929 S52.321D Postoperative visit 1836 62205 Z09 Paresthesia of hand 3090 09283 R20.2 [id number] INEZ COLLINS PA-C [facility] [address] [place] [address] 02/06/2024 14:43:05 02/06/2024 15:21:12 Carpal tunnel syndrome of right wrist 5685843055 43409 G56.01 Health Concerns Section Related Observation LastModified by Organization Detai ls LastModified Time None Recorded Concern Status LastModified by Organization Details LastModified Time None Recorded Advance Directives Directive None Recorded Payers Encounter Date Sequence Insurance Name Policy Number Policy Santiago Covered Member ID Santiago Member ID Guarantor Name 10/17/2023 [employer] [id number] [facility] Chula Reyes 11/14/2023 1 [facility] [id number] Chula Reyes [id number] Chula Goodrichil 12/26/2023 [address] [place] [id number] Chula Hamil [id number] Chula Win Hamil 02/06/2024 [address] [place] [address] [id number] Chula Hamil [id number] Chula Reyes Notes Date Note Type Note Provider Name and Address Organization Details Recorded Time 10/17/2023 text/html Wrist/HandReport ed bypatient.Hand Dominance:right Location:right Severity:no pain Timing:acute Context:fall Aggravating Factors:twisting; ROM; weightbearing Alleviating Factors:rest; limited weight bearing; previous surgery Associated Symptoms:numbness;t ingling;swelling Previous Surgery:surgical procedure: (ORIF radius with perc pinning); date: (10/03/2023) Prior Imaging:x ray Chula is here for a two week post-op follow up after a right wrist ORIF on 10/03/2023. She is using her sling. Unfortunately, she did not receive an OT order for a custom molded splint upon release from the hospital. She is still in her post op dressing. She states that her fingers are numb and tingling. They are a little swollen. Her sutures are in place. Her post op dressing is removed upon rooming and she immediately states that her fingers feel better. She has not really had a lot of pain unless she moves her arm a certain way without thinking. She has not had to take a pain pill for quite a few days now. The ROS is reviewed with the patient and a copy is located in the chart. NICKIE MARCOS APRN [address], [place], [address], [facility] - [facility] 10/17/2023 18:24:31 11/14/2023 text/html Wrist/HandReport ed bypatient.Hand Dominance:right Location:right Severity:no pain Timing:acute Context:fall Aggravating Factors:twisting; ROM; weightbearing Alleviating Factors:rest; limited weight bearing; PT/OT; previous surgery Associated Symptoms:numbness;t ingling Previous Surgery:surgical procedure: (ORIF radius with perc pinning); date: (10/03/2023) Prior Imaging:x ray Previous PT:helped significantly Working:regular duty Chula is here for a six week post-op follow up after a right wrist ORIF on 10/03/2023. She has returned to work and is attending therapy. She is wearing her custom splint as ordered. She had the pin removed from her wrist two weeks ago in our [place] office and states that she has not had any issues since then. She states that occasionally she will have a numbness and tingling in the thumb, second and half of the third fingers. Her swelling is minimal unless she has been moving the wrist a lot, specifically after therapy or showering. She is not having pain at night. She is pleased with the outcome of her surgical intervention. NICKIE MARCOS APRN [address], [place], [address], [facility] - [facility] 11/14/2023 11:52:55 12/26/2023 text/html Wrist/HandReport ed bypatient.Hand Dominance:right Location:right Severity:no pain Timing:acute Context:fall Alleviating Factors:PT/OT; previous surgery Associated Symptoms:numbness;t ingling Previous Surgery:surgical procedure: (ORIF radius with perc pinning); date: (10/03/2023) Prior Imaging:x ray Previous PT:helped significantly Working:regular duty Chula is here for a 12-week post-op follow up after a right wrist ORIF on 10/03/2023. She has continued PT and they discharged her today as she met all her goals. She says that her range of motion is back to baseline and she does not have pain in her wrist from the fracture. She continues to complain of numbness and tingling in her thumb, index and middle finger. She says these fingers typically do not hurt unless they get cold then she does have discomfort. She reports that the middle finger is the worst. The numbness and tingling is constant throughout the day, and there is nothing that makes it better or worse. She has tried taking OTC medications, but these have offered no relief. NICKIE MARCOS APRN [address], [place], [address], [place] - [facility] 12/27/2023 18:28:10 02/06/2024 text/html Hand/FingersRepo rte d bypatient.Hand Dominance:right Location:right Quality:numbness; tingling; no change Severity:mild Duration:5 months Context:cannot identify Aggravating Factors:gripping; grasping; nighttime Associated Symptoms:no swelling; no redness; no warmth; no ecchymosis; no radiation; no drainage; no fever; no chills;weakness;num bness;tingling Previous Surgery:surgical procedure: Prior Imaging:EMG Previous Injections:none Work Related:no Chula is a 43-year-old female who presents to the clinic today for further evaluation of her right hand numbness since her surgery in October 2023. She did obtain her nerve conduction studies since her previous visit and is here to go over them. She continues to do about the same and locates her numbness in the first 3 fingers with minimal discomfort. Her main complaint today is numbness and tingling and this is starting to affect her activities of daily living like trouble writing and dropping things. She currently takes no medication for her discomfort and the numbness and tingling is waking her up at night. She denies any neck pain or any pain that radiates from her hand up into her shoulder. She denies fevers, chills, or night sweats. INEZ COLLINS PA-C [address], [place], [address], [place] [facility] 02/08/2024 13:52:29 OBGyn Episode No OBEpisode recorded.
--- OUTSIDE RECORDS SUMMARY | 2025-03-06 18:25 | XMS_ITS | Encounter Summary ---
Author Organization [facility] Address [address] [place] [id number] Care Team Providers Care Family And Consumer Education Teacher Name Role Phone Adelita Fraga Primary Care Provider Encounter Details Date Type Department Care Team (Late st Contact Info) Description 03/08/[address] [facility] [facility] [address] [place] [address] Mario Cid DO [address] [place] [id number] Social History Tobacco Use Types Packs/Day Years Used Date Smoking Tobacco: Never Smokeless Tobacco: Never Alcohol Use Standard Drinks/Week Comments Yes 0 (1 standard drink = 0.6 oz pur e alcohol) Socially Comments No Sex and Gender Information Value Date Recorded Sex Assigned at Not on file Legal Sex Female 6:15 PM CDT Gender Identity Not on file Sexual Orientation Not on file COVID-19 Exposure Response Date Recorded In the last month, have you been in contact with someone who was confirmed or suspected to have Coronavirus / COVID-19? No / Unsure 02/20/2021 9:16 AM CDT documented as of this encounter Plan of Treatment Not on file documented as of this encounter Visit Diagnoses Not on filedocumented in this encounter Care Teams Family And Consumer Education Teacher Relationship Specialty Start [place] [address] [employer] [place], [place] [id number] PCP - General PHYSICIAN [facility] 02/20/21 documented as of this encounter
--- NOTE | 2025-03-06 18:26 | ED_ITS ---
HPI - URI/Sore Throat General Chief Complaint: Upper Respiratory Infection Stated Complaint: sore throat,neck/ear/head pain Time Seen by Provider: 03/06/25 18:45 Source: patient Mode of arrival: ambulatory Limitations: no limitations History of Present Illness HPI Narrative: Chula is a 44 year old female patient presenting to the clinic today with c/o sore throat, headache, ear pain, and neck pain x6 days. She reports highest fever was 100 point 6. Denies any chest pain or shortness of breath. MD elicited complaint: sore throat and nasal congestion Related Data Home Medications ?Medication ?Instructions ?Recorded ?Confirmed ?Last Taken ?Type atorvastatin 20 mg tablet mg 11/22/23 Unknown History losartan 100 tablet 11/22/23 Unknown History mg-hydrochlorothiazide 25 mg tablet metformin 500 mg tablet mg 11/22/23 Unknown History Allergies Allergy/AdvReac Type Severity Reaction Status Date / Time erythromycin base Allergy Mild Hives Verified 03/06/25 18:25 Review of Systems Review of Systems: Pertinent positives per HPI. Patient denies any rash, visual changes, dizziness, shortness of breath, chest pain, palpitations, nausea, vomiting, diarrhea, constipation, abdominal pain, or any urinary issues. [facility] Family History Family History Mother Hypertension Family history of malignant neoplasm of breast in first degree relative Father Family history of diabetes mellitus in first degree relative Social History Social History Smoking status: Never smoker Alcohol intake: never Comments At the time of my signature, I reviewed and agree with the nursing past medical, surgical, social, and family history. There is no relevant family history pertinent to the patient complaint. Exam Narrative: General: Well-developed, well nourished, in no apparent distress Head: Normocephalic, atraumatic Eyes: Pupils equally round and reactive to light bilaterally, EOM intact, sclera and conjunctive clear, no discharge, lids normal Ears: TMs intact and congested, ear canals clear, no drainage, grossly hearing normal. Nose: Nares patent, clear nasal discharge, no inflammation, no sinus tenderness. Mouth: Oral pharynx red with bilateral tonsillar without lesions or masses, good dentition, MMM. Neck: Supple, trachea midline, enlargement of anterior cervical nodes, no thyroid masses or goiter palpable. Cardio: Regular rate and rhythm, s1 and s2 normal, no murmur appreciated. Resp: Clear to auscultation bilaterally, no rhonchi, rales, wheezing or rubs Course Course Emergency Course: Portions of this record may have been created with voice recognition software. Level of Care: Express Care Visit Vital Signs Vital signs: Vital Signs Temperature 36.7 C 03/06/25 18:39 Pulse Rate 94 03/06/25 18:39 Respiratory Rate 16 03/06/25 18:39 Blood Pressure 136/65 03/06/25 18:39 Pulse Oximetry 97 03/06/25 18:39 Oxygen Delivery Room Air 03/06/25 18:39 Temperature 36.7 C 03/06/25 18:39 Pulse Rate 94 03/06/25 18:39 Respiratory Rate 16 03/06/25 18:39 Blood Pressure 136/65 03/06/25 18:39 Pulse Oximetry 97 03/06/25 18:39 Oxygen Delivery Room Air 03/06/25 18:39 Vital signs reviewed MDM - URI/Sore Throat MDM Narrative Medical decision making narrative: At the time of visit patient is resting comfortably on the exam table. Patient appears to be nontoxic. Labs: Strep test was positive in the clinic today. Plan: Strep test was positive. Will send in prescription for amoxicillin. Supportive measures were discussed with the patient and they voiced understanding discharge instructions and agrees to treatment plan. Return precautions reviewed Differential Diagnosis Differential diagnosis: Likely upper respiratory infection, otitis media, sinusitis, viral infection, bronchitis, influenza, pharyngitis and other (COVID) Lab Data Labs: Lab Results 03/06/25 Range/Units 18:46 POC Grp A Strep Screen Positive (Negative) Discharge Plan Discharge Clinical Impression: Acute streptococcal pharyngitis Patient Disposition: Home, Self-Care Condition: Stable Instructions: Antibiotic Form, Strep Throat (ED) Additional Instructions: Take prescription medications only as prescribed-prednisone and amoxicillin Strep test was positive in the clinic today. Change her toothbrush in 24 hours after initiation of the antibiotics Increase fluids and stay well hydrated Tylenol/motrin for pain/fever Flonase and OTC antihistamines as directed Vicks vapor rub to open sinuses Sinus rinses for congestion Cepacol spray, cough drops, throat lozenges, warm tea with honey/lemon, gargle salt water to soothe throat BRAT diet for diarrhea Clear liquids x 24 hours then advance as tolerated for nausea/vomiting Go to the ED if you develop a worsening in your condition- high fever not controlled by Tylenol or Motrin, dehydration, weakness, lethargy, shortness of breath, or chest pain. Follow up with your PCP in 3-5 days if symptoms persist. Patient Language: Frisian Prescriptions: New amoxicillin 875 mg tablet 875 mg PO Q12H 10 Days Qty: 20 0RF prednisone 20 mg tablet 40 mg PO DAILY 5 Days Qty: 10 0RF No Action metformin 500 mg tablet atorvastatin 20 mg tablet losartan-hydrochlorothiazide 100-25 mg tablet ibuprofen 800 mg tablet 800 mg PO TID PRN (Reason: pain) Qty: 20 0RF Follow-up/Referrals: PHYSICIAN NOT ON STAFF,NONSTAFF [Primary Care Provider] - Stand Alone Forms: Work/School Release IP Time of Disposition: 18:49 Quality NIHSS Nursing Documentation ED NIHSS nursing documentation: reviewed/agree
[2025-03-06 18:39] VITALS: BP 136/65; PULSE 94; RESP 16; TEMP 36.7; O2SAT 97
[2025-03-06 18:48] LABS: EDSTREPNEGPOS1 Positive (Negative)
== END 2025-03-06 18:51 | disposition home or self-care (01) ==
PROVIDERS: Emergency Provider Nurse Practitioner Family
DX: J02.0 Streptococcal pharyngitis (principal); I10 Essential (primary) hypertension; E78.00 Pure hypercholesterolemia, unspecified; E11.9 Type 2 diabetes mellitus without complications; Z86.16 Personal history of COVID-19
CPT/HCPCS: 87880; 99213; G0463